=== PATIENT | male | born 1990 | race Hispanic/Latino ===

== ENCOUNTER 2021-01-05 05:16 | Inpatient (IN) | payer OTHER ==
[~2021-01-05] VITALS: Ht 170.2 cm; Wt 80.5 kg
[2021-01-05 06:00] LABS: HEMATOCRIT 46.7 % (42.0-52.0); HEMOGLOBIN 15.8 g/dl (13.5-17.5); MEAN CORPUSCULAR HEMOGLOBIN 28.8 pg (27.0-33.0); MEAN CORPUSCULAR HGB CONC 33.8 g/dl (32.0-36.5); MEAN CORPUSCULAR VOLUME 85.2 fl (80.0-96.0); PLATELET COUNT, AUTOMATED 235 10^3/uL (150-450); RED BLOOD COUNT 5.48 10^6/uL (4.30-6.10); WHITE BLOOD COUNT 5.2 10^3/uL (4.0-10.0)
[2021-01-05 06:19] LABS: AMPHETAMINES LEVEL URINE NEGATIVE (NEGATIVE); BARBITURATES URINE NEGATIVE (NEGATIVE); BENZODIAZEPINES URINE NEGATIVE (NEGATIVE); CANNABINOIDS URINE NEGATIVE (NEGATIVE); COCAINE METABOLITE URINE NEGATIVE (NEGATIVE); METHADONE URINE NEGATIVE (NEGATIVE); OPIATES URINE NEGATIVE (NEGATIVE); PHENCYCLIDINE URINE NEGATIVE (NEGATIVE)
[2021-01-05 06:33] LABS: ACETAMINOPHEN LEVEL < 2.0 UG/ML (10.0-30.0); ALBUMIN 3.7 GM/DL (3.2-5.2); ALT/SGPT 26 U/L (12-78); BILIRUBIN,DIRECT 0.1 MG/DL (0.0-0.2); BILIRUBIN,TOTAL 0.4 MG/DL (0.2-1.0); BLOOD UREA NITROGEN 14 MG/DL (7-18); CALCIUM LEVEL 8.5 MG/DL (8.5-10.1); CARBON DIOXIDE LEVEL 31 MEQ/L (21-32); CHLORIDE LEVEL 105 MEQ/L (98-107); CREATININE FOR GFR 0.93 MG/DL (0.70-1.30); ETHYL ALCOHOL (ETHANOL) < 0.003 % (0.000-0.010); GLOMERULAR FILTRATION RATE > 60.0 (>60); GLUCOSE, FASTING 97 MG/DL (70-100); POTASSIUM SERUM 4.1 MEQ/L (3.5-5.1); SALICYLATE LEVEL < 1.7 MG/DL (5.0-30.0); SODIUM LEVEL 141 MEQ/L (136-145); TOTAL PROTEIN 7.8 GM/DL (6.4-8.2)
--- NOTE | 2021-01-05 09:16 | MHIPNPDOC ---
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 Vital Signs Vital Signs Date Time Temp Pulse Resp B/P (MAP) Pulse Ox O2 Delivery O2 Flow Rate FiO2 01/05/21 08:27 97.3 51 14 118/75 (89) 99 Room Air Laboratory Data 24H Labs Laboratory Tests 2 01/05/21 05:45: Nucleated Red Blood Cells % (auto) 0.0, Urine Opiates Screen NEGATIVE, Urine Methadone Screen NEGATIVE, Urine Barbiturates Screen NEGATIVE, Urine Phencyc lidine Screen NEGATIVE, Urine Amphetamines Screen NEGATIVE, Urine Benzodiazepines Screen NEGATIVE, Urine Cocaine Metabolite Screen NEGATIVE, Urine Cannabinoids Screen NEGATIVE 01/05/21 05:46: Anion Gap 5L, Glomerular Filtration Rate > 60.0, Calcium Level 8.5, Total Bilirubin 0.4, Direct Bilirubin 0.1, Aspartate Amino Transf (AST/SGOT) 19, Alanine Aminotransferase (ALT/SGPT) 26, Alkaline Phosphatase 100, Total Protein 7.8, Albumin 3.7, Albumin/Globulin Ratio 0.9, Thyroid Stimulating Hormone (TSH) 1.030, Salicylates Level < 1.7L, Acetaminophen Level < 2.0L, Ethyl Alcohol Level < 0.003 CBC/BMP Laboratory Tests 01/05/21 05:45 01/05/21 05:46 Allergies Coded Allergies: No Known Drug Allergies (Verified Allergy, Unknown, 01/05/21) JANIA ALVES MD Jan 05, 2021 09:16
[2021-01-05 17:57] LABS: RSV AMPLIFICATION NEGATIVE (NEGATIVE)
--- NOTE | 2021-01-05 18:20 | ECGEPIP ---
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
[2021-01-05] MEDS ORDERED: HOME MED LIST COMPLETE! XX SCH (18:30)
[2021-01-06] MEDS ORDERED: MOM 30ML SUSPENSION UDC PO PRN (06:55)
[2021-01-06] MEDS ORDERED: MAALOX 30 ML SUSP *UDC PO PRN (06:55)
[2021-01-06 10:41] VITALS: BP 121/68
[2021-01-06 18:17] VITALS: BP 118/71
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
[2021-01-07] MEDS: SERTRALINE HCL 50 MG TAB PO SCH (10:08)
[2021-01-07 16:07] VITALS: BP 117/78
--- NOTE | 2021-01-07 21:22 | HPEPDOC ---
[facility] Medical History & Physical Date of Admission Jan 06, 2021 Date of Service: Jan 07, 2021 History and Physical CHIEF COMPLAINT: Medical health screening HISTORY OF PRESENT ILLNESS: Mr. Hicks is a 30-year-old male who is in the inpatient mental health unit for suicidal ideation with intent. He had tried to cut his left wrist. Please see mental health history and physical exam for more information. I saw patient this evening. He tells me that he is still depressed. He showed me the scars on his left wrist where he tried to cut himself. Otherwise he denies any fever or chills, chest pain, dyspnea, abdominal pain, or dysuria. He tells that he does have diarrhea. It is a soft bowel movement. It comes after he eats. Otherwise he had no other complaints or concerns. PAST MEDICAL HISTORY: Patient denies any past medical history. PAST SURGICAL HISTORY: Patient denies any surgical history SOCIAL HISTORY: Tobacco use: He smokes once in a blue faustin ETOH: Drinks alcohol occasionally Illicit drug use: Denies FAMILY HISTORY: Father: Does not know biologic father's past medical history Mother: Mother has history of lupus ALLERGIES: Please see below. REVIEW OF SYSTEMS: CONSTITUTIONAL: Denies any fever or chills. ENT: Denies sore throat. RESPIRATORY: Denies shortness of breath. Denies cough. CARDIOVASCULAR: Denies chest pain. GASTROINTESTINAL: Denies abdominal pain. Reports soft diarrhea. GENITOURINARY: Denies dysuria. CUTANEOUS: Denies rashes. MUSCULOSKELETAL: Denies muscle weakness. NEUROLOGICAL: Denies neuropathy. PSYCHOLOGICAL: Reports depression. HOME MEDICATIONS: Please see below. PHYSICAL EXAMINATION: VITAL SIGNS: Temperature 98.7, pulse 77, respiratory rate 18, blood pressure 117/78, pulse oximetry 97% on room air. GENERAL: Comfortable, in no apparent distress. HEENT: Head normocephalic/atraumatic, EOMI, sclera clear. NECK: Supple. RESPIRATORY: Lungs clear to auscultation bilaterally, no rales, wheeze or rhonchi. CARDIOVASCULAR: Regular rate and rhythm. ABDOMEN: Soft, nontender, no guarding or rebound tenderness. Normal bowel sounds. MUSCLE SKELETAL: Muscle strength 5/5 in all extremities. NEUROLOGICAL: CN 3-12 grossly intact, no focal deficits noted. CUTANEOUS: On his left wrist he has 2 sets of 2 lacerations scars. PSYCHOLOGICAL: Normal mood and affect LABORATORY DATA: See below. IMAGING: None MICROBIOLOGY: Please see below. ASSESSMENT and PLAN: 1. Suicidal ideation with intent He cut his wrist He is currently in the inpatient mental health unit. Management per psychiatrist. 2. Diarrhea Patient says his diarrhea started since he has been eating here. He is not used to eating 3 meals a day. Not watery Supportive care Patient may benefit from adding more fiber to his diet Thank you for consulting us. We will sign off at this time. If there is any further questions or concerns, please do not hesitate to reconsult us. Vital Signs Vital Signs Date Time Temp Pulse Resp B/P (MAP) Pulse Ox O2 Delivery O2 Flow Rate FiO2 01/07/21 16:07 98.7 77 18 117/78 (91) 97 Room Air Home Medications No Active Prescriptions or Reported Meds Allergies Coded Allergies: No Known Drug Allergies (Verified Allergy, Unknown, 01/05/21) A-FIB/CHADSVASC A-FIB History Current/History of A-Fib/PAF?: No Age/Risk Factor Scoring CHADSVASC: CHADSVASC Response (Comments) Value Age Risk Factor Age < 65 years old 0 Gender Risk Factor Male 0 Hx of CHF No 0 Hx of HTN No 0 Hx of Stroke/TIA/or VTE No 0 Hx of Diabetes No 0 Hx of Vascular Disease No 0 Total 0 JUSTEN REEVES DO Jan 07, 2021 21:21
[2021-01-07] MEDS: traZODone 50 MG TAB PO PRN (23:03)
[2021-01-08 06:07] VITALS: BP 131/67
[2021-01-08] MEDS: SERTRALINE HCL 50 MG TAB PO SCH (08:26)
[2021-01-08] MEDS ORDERED: ACETAMINOPHEN 325 MG TAB PO PRN (10:25)
[2021-01-08] MEDS: ACETAMINOPHEN TAB 650MG DOSE (2X325MG) PO PRN ×2 (10:34→22:15)
--- NOTE | 2021-01-08 10:34 | MHIPNPDOC ---
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 ever since got to his unit, last August has felt discouraged, was supposed to be deployed and is frustrated because he doesn't get to do his job. States original plan was to in combat. States "waking up and being here, like I'm in hell, don't wanna do it anymore". Reports Thursday night at 3 am, has "a big cloud burst of depression, felt unwanted, unneeded. "I was looking for someone to talk to me but felt unwanted, so I sat at for an hour pondering what my life worth, looking for purpose, found no reason, wanted to kill myself, also wanted attention". States unsure if cut himself to end his life or was a cry for help. 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 Has no gun on barracks per policy. Interval: Patient reports still having suicidal thoughts, "but not of actually doing it" and moderate depression. Reports headache and has not been drinking any water, encouraged to drink water, tylenol ordered, denies allergy. Reports sleep is poor, "tossing and turning". Appetite is good. Denies other acute physical complaints, reports continues to have lack of energy. Continues to report he feels he lets people down with command being here. VITAL SIGNS: See below. NEW TEST RESULTS: none CURRENT MEDICATIONS: See below. MENTAL STATUS EXAMINATION: General Appearance: well groomed, hospital scrubs/clothing, other (2 horizontal cuts L wrist, not inflammed or oozing, no stitches) Build: average Demeanor: withdrawn, guarded Eye Contact: avoidant Activity: slowed Behavior: cooperative, loss of interests, anhedonia, withdrawn Speech: clear, slow, low in volume, non-spontaneous Mood: depressed Mood "still depressed" Affect: constricted, withdrawn, dysthymic Thought Process: logical/linear, slow Thought Content (Delusions): endorses suicidal thoughts Thought Content (Other): guarded, coherent Thought Content (Aggressive): none reported Perception (Hallucinations): none reported Perception (Other): none reported Cognition (Impairment of): attention/concentration Cognition(Intelligence Est.): average Oriented: Awake, Alert, Oriented times three Insight: fair, improving Judgment: Poor Psychosis: Denies DIAGNOSES: Major depressive disorder, single episode, severe Cluster C traits, rule out avoidant personality disorder ASSESSMENT: Continues to be depressed with suicidal ideations, negative cognitive distortions, feels he is let other people down and continues to have feelings of hopelessness and helplessness. Reports having headache prior to starting the sertraline this morning in context of likely poor p.o. intake of fluids, vitals are stable 131/67, pulse 63, and encouraged to drink adequate intake, education provided. Denies allergies to Tylenol and reports has helped with headaches in the past. Continues to require stay for acute stabilization of moderate to severe depressive symptoms and suicidal ideations. MANAGEMENT PLAN: continue sertraline, added prn tylenol for headache, encouraged adequate PO intake. We will consider starting Wellbutrin if depressive symptoms and suicidal thoughts do not start to improve. TIME SPENT: 15 minutes. Vital Signs Vital Signs Date Time Temp Pulse Resp B/P (MAP) Pulse Ox O2 Delivery O2 Flow Rate FiO2 01/08/21 06:07 99.2 63 16 131/67 (88) 100 Room Air Current Medications Current Medications Medications (Trade) Dose Ordered Sig/Sigrid Route PRN Reason Start Time Stop Time Status Last Admin Dose Admin Acetaminophen (Tylenol Tab) 650 mg Q6HP PRN PO HEADACHE or MILD DISCOMFORT 01/06/21 06:55 Al Hydrox/Mg Hydrox/Simethicone (Mylanta) 30 ml Q4HP PRN PO HEARTBURN/INDIGESTION 01/06/21 06:55 Home Med (Home Med List Complete!) ASDIRECTED XX 01/05/21 18:30 01/05/21 18:41 DC Magnesium Hydroxide (Milk Of Magnesia) 30 ml DAILYPRN PRN PO CONSTIPATION 01/06/21 06:55 Sertraline HCl (Zoloft) 50 mg DAILY PO 01/07/21 09:00 01/08/21 08:26 Trazodone HCl (Desyrel) 50 mg QHSP PRN PO INSOMNIA 01/06/21 06:55 01/07/21 23:03 Allergies Coded Allergies: No Known Drug Allergies (Verified Allergy, Unknown, 01/05/21) JANIA ALVES MD Jan 08, 2021 10:34
[2021-01-08 16:11] VITALS: BP 106/59
[2021-01-09 06:38] VITALS: BP 114/58
[2021-01-09] MEDS: SERTRALINE HCL 50 MG TAB PO SCH (08:18)
--- NOTE | 2021-01-09 12:23 | MHIPNPDOC ---
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 ever since got to his unit, last August has felt discouraged, was supposed to be deployed and is frustrated because he doesn't get to do his job. States original plan was to in combat. States "waking up and being here, like I'm in hell, don't wanna do it anymore". Reports Thursday night at 3 am, has "a big cloud burst of depression, felt unwanted, unneeded. "I was looking for someone to talk to me but felt unwanted, so I sat at for an hour pondering what my life worth, looking for purpose, found no reason, wanted to kill myself, also wanted attention". States unsure if cut himself to end his life or was a cry for help. 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 Has no gun on [employer] per policy. Interval: States tylenol helped with headaches, has morning headaches usually, says tolerating medications okay without side effects, states still has low energy, anhedonia, low mood, states these symptoms not changed since starting the ,medication, denies other acute physical concerns. denies active suicide thoughts, does endorse "not wanting to be around or wake up". Appetite is good. Agrees to augment medication with wellbutrin 150 mg xl. VITAL SIGNS: See below. NEW TEST RESULTS: none CURRENT MEDICATIONS: See below. MENTAL STATUS EXAMINATION: General Appearance: well groomed, hospital scrubs/clothing, other (2 horizontal cuts L wrist, not inflammed or oozing, no stitches) Build: average Demeanor: withdrawn, guarded Eye Contact: avoidant Activity: slowed Behavior: cooperative, loss of interests, anhedonia, withdrawn Speech: clear, slow, low in volume, spontaneous Mood: depressed Mood "on and off" Affect: constricted, withdrawn, dysthymic Thought Process: logical/linear, slow Thought Content (Delusions): endorses suicidal thoughts Thought Content (Other): guarded, coherent Thought Content (Aggressive): none reported Perception (Hallucinations): none reported Perception (Other): none reported Cognition (Impairment of): attention/concentration Cognition(Intelligence Est.): average Oriented: Awake, Alert, Oriented times three Insight: Good Judgment: Poor Psychosis: Denies DIAGNOSES: Major depressive disorder, single episode, severe Cluster C traits, rule out avoidant personality disorder ASSESSMENT: Has increased anxiety at night, 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 Continues to be depressed with SI, needs time for acute stabilization. States may be interested in skilled nursing treatment. Per outreach, possible pending criminal charges, has upcoming hearing, details unclear. MANAGEMENT PLAN: Continue sertraline, start wellbutrin xl 150 mg po daily for mood augmentation, added prn tylenol for headache, encouraged adequate PO intake and will likely need a sleep study outpatient. TIME SPENT: 20 minutes Vital Signs Vital Signs Date Time Temp Pulse Resp B/P (MAP) Pulse Ox O2 Delivery O2 Flow Rate FiO2 01/09/21 06:38 98.3 65 20 114/58 (76) 99 Room Air Current Medications Current Medications Medications (Trade) Dose Ordered Sig/Sigrid Route PRN Reason Start Time Stop Time Status Last Admin Dose Admin Acetaminophen (Tylenol Tab) 325 mg Q6HP PRN PO HEADACHE 01/08/21 10:25 UNV Acetaminophen (Tylenol Tab) 650 mg Q6HP PRN PO HEADACHE or MILD DISCOMFORT 01/06/21 06:55 01/08/21 22:15 Al Hydrox/Mg Hydrox/Simethicone (Mylanta) 30 ml Q4HP PRN PO HEARTBURN/INDIGESTION 01/06/21 06:55 Home Med (Home Med List Complete!) ASDIRECTED XX 01/05/21 18:30 01/05/21 18:41 DC Magnesium Hydroxide (Milk Of Magnesia) 30 ml DAILYPRN PRN PO CONSTIPATION 01/06/21 06:55 Sertraline HCl (Zoloft) 50 mg DAILY PO 01/07/21 09:00 01/09/21 08:18 Trazodone HCl (Desyrel) 50 mg QHSP PRN PO INSOMNIA 01/06/21 06:55 01/07/21 23:03 Allergies Coded Allergies: No Known Drug Allergies (Verified Allergy, Unknown, 01/05/21) JANIA ALVES MD Jan 09, 2021 12:23
[2021-01-09] MEDS: buPROPion **XL** TABLET 150MG (WELLBUTRIN XL) PO SCH (13:02)
[2021-01-09 16:24] VITALS: BP 123/69
[2021-01-09] MEDS: traZODone 50 MG TAB PO PRN (21:16)
[2021-01-10 06:51] VITALS: BP 108/56
[2021-01-10] MEDS: buPROPion **XL** TABLET 150MG (WELLBUTRIN XL) PO SCH (08:31)
[2021-01-10] MEDS: SERTRALINE HCL 50 MG TAB PO SCH (08:32)
--- NOTE | 2021-01-10 12:15 | MHIPNPDOC ---
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 ever since got to his unit, last August has felt discouraged, was supposed to be deployed and is frustrated because he doesn't get to do his job. States original plan was to in combat. States "waking up and being here, like I'm in hell, don't wanna do it anymore". Reports Thursday night at 3 am, has "a big cloud burst of depression, felt unwanted, unneeded. "I was looking for someone to talk to me but felt unwanted, so I sat at for an hour pondering what my life worth, looking for purpose, found no reason, wanted to kill myself, also wanted attention". States unsure if cut himself to end his life or was a cry for help. 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 [place]. Interval: Reports drinking water, Tylenol, adjusting to his sertraline has led to decreased frequency and intensity of headaches. Reports his mood is still low, appetite is still low, continues to have feelings of pervasive guilt, goes on to tell a story about how his friend told him to get help BH and he broke the promise, cutting himself almost ending his life, with thoughts of thinking that nobody would notice or care, states he still thinks about when he went to this dark place, and makes her feel guilty. Discussed culture the and how this may play into him trying to hide his symptoms, and how he needs to develop healthy means of reaching out to supports, also discussed how pervasive feel may be related to his depressive disorder that may take time for the medications to help with mood and him to see things differently. Sleep is somewhat better. VITAL SIGNS: See below. NEW TEST RESULTS: none CURRENT MEDICATIONS: See below. MENTAL STATUS EXAMINATION: General Appearance: well groomed, hospital scrubs/clothing, other (2 horizontal cuts L wrist, not inflammed or oozing, no stitches) Build: average Demeanor: withdrawn, guarded Eye Contact: avoidant Activity: slowed Behavior: cooperative, loss of interests, anhedonia, withdrawn Speech: clear, slow, low in volume, spontaneous Mood: depressed Mood "still low" Affect: Depressed, constricted, withdrawn Thought Process: logical/linear, slow Thought Content (Delusions): endorses suicidal thoughts Thought Content (Other): guarded, coherent Thought Content (Aggressive): none reported Perception (Hallucinations): none reported Perception (Other): none reported Cognition (Impairment of): attention/concentration Cognition(Intelligence Est.): average Oriented: Awake, Alert, Oriented times three Insight: fair Judgment: Poor Psychosis: Denies DIAGNOSES: Major depressive disorder, single episode, severe Cluster C traits, rule out avoidant personality disorder ASSESSMENT: Patient reports headache is improved, thinks possibly due to starting/adjusting to medication and due to adequate p.o. fluid intake, as needed Tylenol, headache may also be worsened due to anxiety symptoms which have started to improve, but continues to have low mood, low energy, low appetite, vague SI, needs extended stay to treat his depressive symptoms. MANAGEMENT PLAN: Continue sertraline, continue wellbutrin xl 150 mg po daily for mood augmentation, added prn tylenol for headache, encouraged adequate PO intake and will likely need a sleep study outpatient. TIME SPENT: 20 minutes Vital Signs Vital Signs Date Time Temp Pulse Resp B/P (MAP) Pulse Ox O2 Delivery O2 Flow Rate FiO2 01/10/21 06:51 97.7 59 20 108/56 (73) 95 Room Air Current Medications Current Medications Medications (Trade) Dose Ordered Sig/Sigrid Route PRN Reason Start Time Stop Time Status Last Admin Dose Admin Acetaminophen (Tylenol Tab) 325 mg Q6HP PRN PO HEADACHE 01/08/21 10:25 UNV Acetaminophen (Tylenol Tab) 650 mg Q6HP PRN PO HEADACHE or MILD DISCOMFORT 01/06/21 06:55 01/08/21 22:15 Al Hydrox/Mg Hydrox/Simethicone (Mylanta) 30 ml Q4HP PRN PO HEARTBURN/INDIGESTION 01/06/21 06:55 Bupropion HCl (Wellbutrin Xl) 150 mg DAILY PO 01/09/21 13:00 01/10/21 08:31 Home Med (Home Med List Complete!) ASDIRECTED XX 01/05/21 18:30 01/05/21 18:41 DC Magnesium Hydroxide (Milk Of Magnesia) 30 ml DAILYPRN PRN PO CONSTIPATION 01/06/21 06:55 Sertraline HCl (Zoloft) 50 mg DAILY PO 01/07/21 09:00 01/10/21 08:32 Trazodone HCl (Desyrel) 50 mg QHSP PRN PO INSOMNIA 01/06/21 06:55 01/09/21 21:16 Allergies Coded Allergies: No Known Drug Allergies (Verified Allergy, Unknown, 01/05/21) JANIA ALVES MD Jan 10, 2021 12:15
[2021-01-10 15:27] VITALS: BP 118/80
[2021-01-10] MEDS: traZODone 50 MG TAB PO PRN (23:01)
[2021-01-11 06:32] VITALS: BP 105/59
[2021-01-11] MEDS: buPROPion **XL** TABLET 150MG (WELLBUTRIN XL) PO SCH (08:49)
[2021-01-11] MEDS: SERTRALINE HCL 50 MG TAB PO SCH (08:49)
--- NOTE | 2021-01-11 13:11 | MHIPNPDOC ---
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 ever since got to his unit, last August has felt discouraged, was supposed to be deployed and is frustrated because he doesn't get to do his job. States original plan was to in combat. States "waking up and being here, like I'm in hell, don't wanna do it anymore". Reports Thursday night at 3 am, has "a big cloud burst of depression, felt unwanted, unneeded. "I was looking for someone to talk to me but felt unwanted, so I sat at for an hour pondering what my life worth, looking for purpose, found no reason, wanted to kill myself, also wanted attention". States unsure if cut himself to end his life or was a cry for help. 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 Has no gun on [employer] per policy. Interval: Patient reports that headaches have improved, reports he still has the same thoughts of not wanting to be here with "clouds of depression", feels a little bit irritated by people on the unit that yell, but activities on the unit including groups have been helpful, feels he needs to continue to work on developing the coping skills. Unsure if he will be safe if discharged at this time, but does report improved sleep with trazodone. Appetite is good, no acute physical complaints. Denies medication side effects VITAL SIGNS: See below. NEW TEST RESULTS: none CURRENT MEDICATIONS: See below. MENTAL STATUS EXAMINATION: General Appearance: well groomed, hospital scrubs/clothing, other (2 horizontal cuts L wrist, not inflammed or oozing, no stitches) Build: average, thin Demeanor: withdrawn, guarded Eye Contact: avoidant Activity: slowed Behavior: cooperative, loss of interests, anhedonia, withdrawn Speech: clear, slow, low in volume, spontaneous Mood: depressed Mood "still same thoughts" Affect: Depressed, constricted, withdrawn Thought Process: logical/linear, slow Thought Content (Delusions): endorses suicidal ideations Thought Content (Other): guarded, coherent Thought Content (Aggressive): none reported Perception (Hallucinations): none reported Perception (Other): none reported Cognition (Impairment of): attention/concentration Cognition(Intelligence Est.): average Oriented: Awake, Alert, Oriented times four Insight: Improving Judgment: Poor Psychosis: Denies DIAGNOSES: Major depressive disorder, single episode, severe Cluster C traits, rule out avoidant personality disorder ASSESSMENT: Reports headache continues to improve, nonbothersome, tolerating medications without side effects, continues to report symptoms of dysthymia, low energy, anhedonia, suicidal thoughts, does not feel safe to leave the unit and requires continued stay for stabilization. Patient reports guilt related to interaction with another colleague, but is vague on the occurrence stating it was about him not seeking behavioral health, possibly minimizing the situation and avoiding discussion details. Has possible pending legal hearing when he [place] to base, details unavailable at this time. MANAGEMENT PLAN: Continue sertraline, continue wellbutrin xl 150 mg po daily for mood augmentation, added prn tylenol for headache, encouraged adequate PO intake and may require a sleep study outpatient, does report history of snoring, patient is thin and not significantly elevated BMI. TIME SPENT: 15 minutes Vital Signs Vital Signs Date Time Temp Pulse Resp B/P (MAP) Pulse Ox O2 Delivery O2 Flow Rate FiO2 01/11/21 06:32 98.4 57 18 105/59 (74) 95 Room Air Current Medications Current Medications Medications (Trade) Dose Ordered Sig/Sigrid Route PRN Reason Start Time Stop Time Status Last Admin Dose Admin Acetaminophen (Tylenol Tab) 325 mg Q6HP PRN PO HEADACHE 01/08/21 10:25 UNV Acetaminophen (Tylenol Tab) 650 mg Q6HP PRN PO HEADACHE or MILD DISCOMFORT 01/06/21 06:55 01/08/21 22:15 Al Hydrox/Mg Hydrox/Simethicone (Mylanta) 30 ml Q4HP PRN PO HEARTBURN/INDIGESTION 01/06/21 06:55 Bupropion HCl (Wellbutrin Xl) 150 mg DAILY PO 01/09/21 13:00 01/11/21 08:49 Home Med (Home Med List Complete!) ASDIRECTED XX 01/05/21 18:30 01/05/21 18:41 DC Magnesium Hydroxide (Milk Of Magnesia) 30 ml DAILYPRN PRN PO CONSTIPATION 01/06/21 06:55 Sertraline HCl (Zoloft) 50 mg DAILY PO 01/07/21 09:00 01/11/21 08:49 Trazodone HCl (Desyrel) 50 mg QHSP PRN PO INSOMNIA 01/06/21 06:55 01/10/21 23:01 Allergies Coded Allergies: No Known Drug Allergies (Verified Allergy, Unknown, 01/05/21) JANIA ALVES MD Jan 11, 2021 13:10
[2021-01-11 16:08] VITALS: BP 123/79
[2021-01-11] MEDS: traZODone 50 MG TAB PO PRN (20:30)
[2021-01-12 06:56] VITALS: BP 109/59
[2021-01-12] MEDS: SERTRALINE HCL 50 MG TAB PO SCH (08:39)
[2021-01-12] MEDS: buPROPion **XL** TABLET 150MG (WELLBUTRIN XL) PO SCH (08:40)
[2021-01-12 16:25] VITALS: BP 121/68
[2021-01-12] MEDS: traZODone 50 MG TAB PO PRN (21:05)
[2021-01-13 07:09] VITALS: BP 107/85
[2021-01-13] MEDS: SERTRALINE HCL 50 MG TAB PO SCH (09:03)
[2021-01-13] MEDS: buPROPion **XL** TABLET 150MG (WELLBUTRIN XL) PO SCH (09:03)
[2021-01-13 16:22] VITALS: BP 124/70
[2021-01-13] MEDS: traZODone 50 MG TAB PO PRN (22:13)
[2021-01-14 06:55] VITALS: BP 108/54
[2021-01-14] MEDS: buPROPion **XL** TABLET 150MG (WELLBUTRIN XL) PO SCH (08:11)
[2021-01-14] MEDS: SERTRALINE HCL 50 MG TAB PO SCH (08:11)
--- NOTE | 2021-01-14 12:44 | MHIPNPDOC ---
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 after alerting that he had been cutting his wrists. ever since got to his unit, last August has felt discouraged, states was supposed to be deployed and is frustrated because he doesn't get to do his job. States original plan was to in combat. States "waking up and being here, like I'm in hell, don't wanna do it anymore". Reports Thursday night at 3 am, has "a big cloud burst of depression, felt unwanted, unneeded. "I was looking for someone to talk to me but felt unwanted, so I sat at for an hour pondering what my life worth, looking for purpose, found no reason, wanted to kill myself, also wanted attention". States unsure if cut himself to end his life or was a cry for help. 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 Has no gun on [employer] per policy. Interval: Patient does not continue to endorse headaches, reports tolerating medications well without side effects, no acute physical complaints. Has been attending most groups, states he continues to feel depressed, feelings of hopelessness at times and is unsure if he feels ready to leave. When asked about suicidal ideations states he is not currently having these thoughts in the moment, but is unsure if they would come back if he left the unit as being in the as a significant stressor for him. Reports depression is a 5 out of 10. Reports continues to have some symptoms of anxiety regarding his situation in the . Sleep has not significantly improved, appetite remains low. VITAL SIGNS: See below. NEW TEST RESULTS: none CURRENT MEDICATIONS: See below. MENTAL STATUS EXAMINATION: General Appearance: well groomed, hospital scrubs/clothing, other (2 horizontal cuts L wrist, not inflammed or oozing, no stitches) Build: average, thin Demeanor: withdrawn, guarded Eye Contact: avoidant Activity: slowed Behavior: cooperative, loss of interests, anhedonia, withdrawn Speech: clear, slow, low in volume, spontaneous Mood: depressed Mood "depressed but not having suicidal thoughts today" Affect: Dysthymic, constricted, withdrawn Thought Process: logical/linear, slow Thought Content (Delusions): Denies suicidal thoughts today Thought Content (Other): guarded, coherent Thought Content (Aggressive): none reported Perception (Hallucinations): none reported Perception (Other): none reported Cognition (Impairment of): attention/concentration Cognition(Intelligence Est.): average Oriented: Awake, Alert, Oriented times four Insight: Fair Judgment: Poor Psychosis: Denies DIAGNOSES: Major depressive disorder, single episode, severe Cluster C traits, rule out avoidant personality disorder ASSESSMENT: Patient reports all her medications well without side effects, but continues to report significant depression and anxiety symptoms, no longer endorsing active suicidal thoughts, but states he does not feel safe if he leaves and needs further stay. Patient needs further stay for acute stabilization of depression, and remains risk for suicide. MANAGEMENT PLAN: Continue sertraline, continue wellbutrin xl 150 mg po daily for mood augmentation, added prn tylenol for headache, encouraged adequate PO intake and may require a sleep study outpatient, does report history of snoring, patient is thin and not significantly elevated BMI. TIME SPENT: 20 minutes Vital Signs Vital Signs Date Time Temp Pulse Resp B/P (MAP) Pulse Ox O2 Delivery O2 Flow Rate FiO2 01/14/21 06:55 98.7 60 18 108/54 (72) 99 Room Air Current Medications Current Medications Medications (Trade) Dose Ordered Sig/Sigrid Route PRN Reason Start Time Stop Time Status Last Admin Dose Admin Acetaminophen (Tylenol Tab) 325 mg Q6HP PRN PO HEADACHE 01/08/21 10:25 UNV Acetaminophen (Tylenol Tab) 650 mg Q6HP PRN PO HEADACHE or MILD DISCOMFORT 01/06/21 06:55 01/08/21 22:15 Al Hydrox/Mg Hydrox/Simethicone (Mylanta) 30 ml Q4HP PRN PO HEARTBURN/INDIGESTION 01/06/21 06:55 Bupropion HCl (Wellbutrin Xl) 150 mg DAILY PO 01/09/21 13:00 01/14/21 08:11 Home Med (Home Med List Complete!) ASDIRECTED XX 01/05/21 18:30 01/05/21 18:41 DC Magnesium Hydroxide (Milk Of Magnesia) 30 ml DAILYPRN PRN PO CONSTIPATION 01/06/21 06:55 Sertraline HCl (Zoloft) 50 mg DAILY PO 01/07/21 09:00 01/14/21 08:11 Trazodone HCl (Desyrel) 50 mg QHSP PRN PO INSOMNIA 01/06/21 06:55 01/13/21 22:13 Allergies Coded Allergies: No Known Drug Allergies (Verified Allergy, Unknown, 01/05/21) JANIA ALVES MD Jan 14, 2021 12:44
[2021-01-14 15:58] VITALS: BP 142/86
[2021-01-14] MEDS: traZODone 50 MG TAB PO PRN (22:05)
[2021-01-15 07:13] VITALS: BP 120/68
[2021-01-15] MEDS: buPROPion **XL** TABLET 150MG (WELLBUTRIN XL) PO SCH (09:03)
--- NOTE | 2021-01-15 13:35 | MHIPNPDOC ---
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 ever since got to his unit, last August has felt discouraged, states was supposed to be deployed and is frustrated because he doesn't get to do his job. States original plan was to in combat. States "waking up and being here, like I'm in hell, don't wanna do it anymore". Reports Thursday night at 3 am, has "a big cloud burst of depression, felt unwanted, unneeded. "I was looking for someone to talk to me but felt unwanted, so I sat at for an hour pondering what my life worth, looking for purpose, found no reason, wanted to kill myself, also wanted attention". States unsure if cut himself to end his life or was a cry for help. 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 Has no gun on [employer] per policy. Interval: Patient has been attending groups, continues to report depressed mood, feels he needs extended stay as he has been having dark thoughts, reports trouble sleeping and tossing and turning, improved feel lightheaded this morning after taking his trazodone last night, states he is a bit anxious about new people being on the unit, denies any psychotic symptoms or manic symptoms. No acute physical complaints, denies medication side effects. Agrees to start mirtazapine 7.5 mg nightly, discontinue trazodone due to lightheadedness reported in the morning after taking the medication. VITAL SIGNS: See below. NEW TEST RESULTS: See below CURRENT MEDICATIONS: See below. MENTAL STATUS EXAMINATION: General Appearance: well groomed, hospital scrubs/clothing, other (2 horizontal cuts L wrist, not inflammed or oozing, no stitches), avoiding eye contact, appears stated age Build: average, thin Demeanor: withdrawn, guarded Eye Contact: avoidant Activity: slowed Behavior: cooperative, loss of interests, anhedonia, withdrawn Speech: clear, slow, low in volume, spontaneous Mood: depressed Mood "anxiety and depression" Affect: Continues to appear dysthymic, constricted, withdrawn Thought Process: logical/linear, slow Thought Content (Delusions): Vague suicidal ideation described as dark thoughts Thought Content (Other): guarded, coherent Thought Content (Aggressive): none reported Perception (Hallucinations): none reported Perception (Other): none reported Cognition (Impairment of): attention/concentration Cognition(Intelligence Est.): average Oriented: Awake, Alert, Oriented times four Insight: Improving Judgment: Improving Psychosis: Denies DIAGNOSES: Major depressive disorder, single episode, severe Cluster C traits, rule out avoidant personality disorder ASSESSMENT: Patient continues to report low mood which is somewhat improved but continues to have "dark thoughts", which her descriptions were vague suicidal thoughts, no intent or plan clearly indicated, and reports poor response to trazodone with lightheadedness in the a.m., agrees to starting mirtazapine 7.5 mg nightly, made aware of risk for elevated lipids, metabolic side effects, ordered lipid panel for tomorrow a.m. MANAGEMENT PLAN: Start mirtazapine 7.5 mg nightly for sleep, continue sertraline, continue wellbutrin xl 150 mg po daily for mood augmentation, prn tylenol for headache, encouraged adequate PO intake and may require a sleep study outpatient, does report history of snoring, patient is thin and not significantly elevated BMI. TIME SPENT: 25 minutes Vital Signs Vital Signs Date Time Temp Pulse Resp B/P (MAP) Pulse Ox O2 Delivery O2 Flow Rate FiO2 01/15/21 07:13 97.5 61 18 120/68 (85) 98 Room Air Current Medications Current Medications Medications (Trade) Dose Ordered Sig/Sigrid Route PRN Reason Start Time Stop Time Status Last Admin Dose Admin Acetaminophen (Tylenol Tab) 325 mg Q6HP PRN PO HEADACHE 01/08/21 10:25 UNV Acetaminophen (Tylenol Tab) 650 mg Q6HP PRN PO HEADACHE or MILD DISCOMFORT 01/06/21 06:55 01/08/21 22:15 Al Hydrox/Mg Hydrox/Simethicone (Mylanta) 30 ml Q4HP PRN PO HEARTBURN/INDIGESTION 01/06/21 06:55 Bupropion HCl (Wellbutrin Xl) 150 mg DAILY PO 01/09/21 13:00 01/15/21 09:03 Home Med (Home Med List Complete!) ASDIRECTED XX 01/05/21 18:30 01/05/21 18:41 DC Magnesium Hydroxide (Milk Of Magnesia) 30 ml DAILYPRN PRN PO CONSTIPATION 01/06/21 06:55 Mirtazapine (Remeron) 7.5 mg QHS PO 01/15/21 21:00 Sertraline HCl (Zoloft) 50 mg DAILY PO 01/07/21 09:00 01/14/21 08:11 Trazodone HCl (Desyrel) 50 mg QHSP PRN PO INSOMNIA 01/06/21 06:55 01/15/21 08:20 DC 01/14/21 22:05 Allergies Coded Allergies: No Known Drug Allergies (Verified Allergy, Unknown, 01/05/21) JANIA ALVES MD Jan 15, 2021 13:35
[2021-01-15] MEDS: SERTRALINE HCL 50 MG TAB PO SCH (13:41)
[2021-01-15 19:08] VITALS: BP 118/60
[2021-01-15] MEDS ORDERED: MIRTAZAPINE 7.5MG PER 1/2 TABLET PO SCH (21:00)
[2021-01-16 06:25] VITALS: BP 134/62
[2021-01-16 07:43] LABS: CHOLESTEROL RISK RATIO 5.452 (<5)
[2021-01-16] MEDS: buPROPion **XL** TABLET 150MG (WELLBUTRIN XL) PO SCH (08:02)
[2021-01-16] MEDS: SERTRALINE HCL 50 MG TAB PO SCH (08:02)
[2021-01-16] MEDS: ACETAMINOPHEN TAB 650MG DOSE (2X325MG) PO PRN (08:06)
[2021-01-16] MEDS ORDERED: BUPR150T12 PO (11:24)
[2021-01-16] MEDS ORDERED: MIRT-62 PO (11:24)
[2021-01-16] MEDS ORDERED: SERT50TA29 PO (11:24)
--- NOTE | 2021-01-16 13:06 | MHDSPDOC ---
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 [facility] ever since got to his unit, last August has felt discouraged, states was supposed to be deployed and is frustrated because he doesn't get to do his job. [facility] original plan was to in combat. States "waking up and being here, like I'm in hell, don't wanna do it anymore". Reports Thursday night at 3 am, had "a big cloud burst of depression, felt unwanted, unneeded. "I was looking for someone to talk to me but felt unwanted, so I sat at for an hour pondering what my life worth, looking for purpose, found no reason, wanted to kill myself, also wanted attention". States unsure if cut himself to end his life or was a cry for help. 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 Has no gun on barracks per policy. Vital signs: See below Consultants involved: See medical H&P by hospitalist Treatment and progress on the unit: Patient was admitted to the [facility] on a 9.39 legal status and was afforded the following treatment modalities: 1. Individual therapy 2. Group therapy 3. Medication management 4. Milieu therapy 5. Safe environment Hospital course: Patient was admitted to the [facility] on a 9.39 legal status. Was medically cleared prior to coming up to the [facility]. Patient was started on sertraline 50 mg p.o. daily and Wellbutrin 150 mg XL, mirtazapine 15 mg nightly for sleep. Reported feeling lightheaded after taking trazodone in the a.m. and so the medication was discontinued and will switch to mirtazapine. During stay reported that he had chronic low moods, although improved with coping skills. On interview as patient was somewhat sullen, withdrawn, melancholic however per staff was engaged on the unit, smiling laughing jovial and joking, went to many groups. Patient found medications beneficial and tolerated them well. Denies mood anxiety and intrusive thoughts which improved with treatment. Patient attended groups daily during stay. Patient symptoms improved with treatment. On day of discharge patient denied depression, anxiety, insomnia, suicidal or homicidal ideations intent or plan, hallucinations, delusions. Patient was discharged to [facility] with follow-up. Patient felt safe for discharge. Discharge assessment: On today's interview patient is alert and oriented, dressed appropriately. Hygiene and grooming is well-kept. Smiles on approach and is pleasant and engaged on interview. Denies depression and anxiety. Denies suicidal homicidal ideation, intent or planning. Denies and is not observed with nav or psychotic symptoms of delusions, hallucinations, bizarre thinking, obsessions, paranoia, ruminations, illogical thoughts, flight of ideas or having poor insight or judgment. Patient has normal mentation, declines further hospitalization of voluntary status and meets criteria for discharge today, patient encouraged to return the hospital if symptoms worsen or change and encouraged to call unit if they feel they need provider's questions to be answered or help with medications or care. Reports future oriented to form friendships, reach out supports if he is feeling sad instead of isolating. States will be safe to leave, will seek out supports and help feeling safe but is not entirely happy with his situation of the long-term. Patient was able to joke about drinking too much coffee and that he will try to drink less so he is less shaky. Mental status: General Appearance: well groomed, hospital scrubs/clothing, other (2 horizontal cuts L wrist, not inflammed or oozing, no stitches), improved eye contact, appears stated age Build: average, thin Demeanor: Cooperative, engaged in talk Eye Contact: Improved during conversation Activity: Average Behavior: cooperative, future oriented, Speech: clear, normal rate, spontaneous Mood: "5/10", improved Mood chronic mild depression Affect: Mildly constricted, was able to laugh at times and makes jokes, stable, appropriate. Per nursing staff and social work was jovial, smiling and engaged on the unit outside of appointments with myself. Thought Process: logical/linear, goal-directed Thought Content (Delusions): Denies suicidal ideations, intent or plan. Denies any homicidal ideations, intent or plan. Thought Content (Other): Less guarded, coherent Thought Content (Aggressive): none reported Perception (Hallucinations): none reported Perception (Other): none reported Cognition (Impairment of): attention/concentration Cognition(Intelligence Est.): average Oriented: Awake, Alert, Oriented times four Insight: Good Judgment: Fair Psychosis: Denies Medications on discharge: -see medication reconciliation: CSSRS on discharge: Wish to be : No nonspecific active suicidal thoughts: No lifetime attempts: 0 interrupted attempts: 0 aborted attempts: 0 preparatory acts or behavior: None Taking into consideration safety state, safety plan, protective factors (enjoys job, future oriented, stable on medications plus continue, has outside provider at [facility], has friends he can use as supports, no weapons), status, modifiable, non-modifiable risk factors patient is at low risk on discharge for suicide according to [place] suicide evaluation. PLAN/FOLLOWUP ARRANGEMENTS: Follow Up Care Education Label * Medical * Medical Follow Up [facility] * Established With This Provider Yes * Therapist LT. TRUJILLO * Date Jan 18, 2021 * Time 15:00 * Address of Clinic or Practice [facility] * The amount of time spent in the coordination of care for this patient was approximately 40 minutes. ETOH/Disorder Med Rx ETOH/DRUG DISORDER RX: Offrd @ d/c & pt refused Vital Signs/I&Os Vital Signs Date Time Temp Pulse Resp B/P (MAP) Pulse Ox O2 Delivery O2 Flow Rate FiO2 01/16/21 06:25 97.1 63 14 134/62 (86) 98 Room Air Laboratory Data Labs 24H Laboratory Tests 2 01/16/21 06:44: Triglycerides Level 271H, Total Cholesterol 229H, LDL Cholesterol 133H, Non-HDL Cholesterol (LDL + VLDL) 187, Total HDL Cholesterol 42, Cholesterol/HDL Ratio 5. 452H Medications Scheduled Bupropion Hcl (Bupropion Xl) 150 Mg Tab.er.24h, 150 MG PO DAILY for depression, #7 Mirtazapine (Remeron) 15 Mg Tablet, 7.5 MG PO QHS for insomnia, #7 Sertraline HCl (Sertraline HCl) 50 Mg Tablet, 50 MG PO DAILY for mood, #7 Allergies Coded Allergies: No Known Drug Allergies (Verified Allergy, Unknown, 01/05/21) JANIA ALVES MD Jan 16, 2021 13:05
== END 2021-01-16 12:59 | disposition home or self-care (01) | DRG 885 ==
LOC: M ED 05:16 → M ED INP 01-06 06:55 → M PSY 01-06 10:17
PROVIDERS: ADMIT Student in an Organized Health Care Education/Training Program; ATTEND Student in an Organized Health Care Education/Training Program
DX: F32.2 Major depressive disorder, single episode, severe without psychotic features (principal); R45.851 Suicidal ideations; F60.89 Other specific personality disorders; G43.909 Migraine, unspecified, not intractable, without status migrainosus; R19.7 Diarrhea, unspecified; Z20.822 Contact with and (suspected) exposure to COVID-19; Z63.8 Other specified problems related to primary support group

== ENCOUNTER 2022-09-09 16:27 | Emergency (ER) | payer OTHER ==
[~2022-09-09] VITALS: Ht 170.2 cm; Wt 90.5 kg
[~2022-09-09 16:27] MED LIST: BUPR150T12 PO; MIRT-62 PO; SERT50TA29 PO
[2022-09-09 20:09] VITALS: BP 151/85; TEMP 97.3; O2SAT 98
== END 2022-09-09 20:10 | disposition home or self-care (01) ==
LOC: M ED 16:27 → EDBD 16:27 → M ED 20:10
DX: S00.03XA Contusion of scalp, initial encounter (principal); V49.40XA Driver injured in collision with unspecified motor vehicles in traffic accident, initial encounter; Y92.410 Unspecified street and highway as the place of occurrence of the external cause; F32.A Depression, unspecified; Z79.899 Other long term (current) drug therapy